=== PATIENT | female | born 1940 | race Caucasian/White ===

== ENCOUNTER → 2017-05-30 | Outpatient (CLI) | payer MEDICARE, OTHER ==
--- NOTE | 2017-05-30 11:33 | Diagnostic Imaging Report ---
EXAMINATION: Right lower extremity duplex venous ultrasound. TECHNIQUE: DVT protocol. Multiple sonographic images with color Doppler and waveform interrogation were performed of the right lower extremity veins with compression and augmentation maneuvers. INDICATION: Right leg pain. FINDINGS: The right lower extremity veins from the groin to below the knee veins were examined with normal color-flow, compressibility and normal waveform demonstrated. The great saphenous vein is patent. IMPRESSION: No evidence of DVT in the right lower extremity. Dictated by: Dictated on workstation # [id number]
== END ==
LOC: RAD 10:28
PROVIDERS: ATTEND Family Medicine
DX: M79.661 Pain in right lower leg (principal)

== ENCOUNTER → 2019-12-28 | Outpatient (CLI) | payer MEDICARE, OTHER ==
--- NOTE | 2019-12-28 13:41 | Diagnostic Imaging Report ---
INDICATION: Fatigue and joint pain. Time of exam 12:49 PM No prior studies are available for comparison. Heart size normal. There are calcified lymph nodes in the ike bilaterally consistent with prior granulomatous exposure. No infiltrates are seen. There is no effusion or pneumothorax. IMPRESSION: No acute cardiopulmonary process is detected. Dictated by: Dictated on workstation # [id number]
== END ==
LOC: RAD 12:31
PROVIDERS: ATTEND Family Medicine
DX: M25.50 Pain in unspecified joint (principal); R53.83 Other fatigue; R51 Headache; M79.603 Pain in arm, unspecified
CPT/HCPCS: 71046

== ENCOUNTER 2020-08-11 09:03 | Outpatient (CLI) | payer MEDICARE, OTHER ==
[~2020-08-11] VITALS: Ht 167.7 cm; Wt 80.0 kg
[2020-08-11 08:55] VITALS: BP 115/54
[2020-08-11] MEDS ORDERED: EPINEPHrine INJECTION 1 MG/ML AMP IM PRN (09:15)
[2020-08-11] MEDS ORDERED: diphenhydrAMINE 50 MG/ML INJ (BENADRYL) IV PRN (09:15)
[2020-08-11] MEDS ORDERED: BAMLANIVIMAB 700 MG in NS 200 ML IV ONE (09:15)
[2020-08-11 10:45] VITALS: BP 131/58
== END 2020-08-11 11:45 | disposition home or self-care (01) ==
LOC: INFUSION 09:03
PROVIDERS: ATTEND Family Medicine
DX: U07.1 COVID-19 (principal)

== ENCOUNTER 2020-08-17 14:23 | Emergency (ER) | payer MEDICARE, OTHER ==
[~2020-08-17] VITALS: Ht 167 cm; Wt 77.0 kg
--- NOTE | 2020-08-17 14:39 | ED Cough/URI ---
General Chief Complaint: Respiratory Problems Stated Complaint: SOA/COVID + Source: patient Exam Limitations: no limitations History of Present Illness Date Seen by Provider: Aug 17, 2020 Time Seen by Provider: 14:36 Initial Comments To ER by private vehicle with reports of shortness of breath, hypoxia and being Covid positive. Sats 88% at home. Tested positive 08/08. Received bamlanivimab. Timing/Duration: constant Severity/Quality: moderate Associated Symptoms: cough Allergies and Home Medications Allergies Coded Allergies: Penicillins (Unverified Adverse Reaction, Unknown, 08/11/20) Sulfa (Sulfonamide Antibiotics) (Unverified Adverse Reaction, Unknown, 08/11/20) Home Medications Dexamethasone 6 Mg Tablet, 6 MG PO DAILY Prescribed by: JHONNY ULLOA on 08/17/20 1536 [Oxygen] , 2 L NA UD Home oxygen concentrator at 2-4 liters to keep O2 saturation >90%. Prescribed by: JHONNY ULLOA on 08/17/20 1535 Patient Home Medication List Home Medication List Reviewed: Yes Review of Systems Review of Systems Constitutional: see HPI EENTM: see HPI Respiratory: see HPI Cardiovascular: no symptoms reported Genitourinary: no symptoms reported Musculoskeletal: no symptoms reported Skin: no symptoms reported Psychiatric/Neurological: No Symptoms Reported Hematologic/Lymphatic: No Symptoms Reported Physical Exam Vital Signs - First Documented 08/17/20 14:35 Temp 37.5 Pulse 82 Resp 20 B/P (MAP) 144/90 (108) Pulse Ox 94 O2 Delivery Room Air Capillary Refill : Height: '" Weight: lbs. oz. kg; BMI Method: General Appearance: WD/WN, no apparent distress, other Eyes: Bilateral Eye Normal Inspection, Bilateral Eye PERRL HEENT: PERRL/EOMI, normal ENT inspection Neck: non-tender, full range of motion Respiratory: no respiratory distress, no accessory muscle use Gastrointestinal: normal bowel sounds, soft Extremities: normal range of motion, non-tender Neurologic/Psychiatric: alert, normal mood/affect, oriented x 3 Skin: normal color, warm/dry Progress/Results/Core Measures Suspected Sepsis SIRS Temperature: Pulse: Respiratory Rate: Laboratory Tests 08/17/20 14:33: White Blood Count 10.3 Blood Pressure / Mean: Laboratory Tests 08/17/20 14:33: Creatinine 2.37H, Platelet Count 271, Total Bilirubin 0.3 Results/Orders Lab Results Laboratory Tests Test 08/17/20 14:33 Range/Units White Blood Count 10.3 4.3-11.0 10^3/uL Red Blood Count 3.67 L 3.80-5.11 10^6/uL Hemoglobin 10.6 L 11.5-16.0 g/dL Hematocrit 33 L 35-52 % Mean Corpuscular Volume 90 80-99 fL Mean Corpuscular Hemoglobin 29 25-34 pg Mean Corpuscular Hemoglobin Concent 32 32-36 g/dL Red Cell Distribution Width 13.8 10.0-14.5 % Platelet Count 271 130-400 10^3/uL Mean Platelet Volume 9.8 9.0-12.2 fL Immature Granulocyte % (Auto) 2 % Neutrophils (%) (Auto) 77 H 42-75 % Lymphocytes (%) (Auto) 11 L 12-44 % Monocytes (%) (Auto) 10 0-12 % Eosinophils (%) (Auto) 0 0-10 % Basophils (%) (Auto) 0 0-10 % Neutrophils # (Auto) 7.9 H 1.8-7.8 10^3/uL Lymphocytes # (Auto) 1.2 1.0-4.0 10^3/uL Monocytes # (Auto) 1.1 H 0.0-1.0 10^3/uL Eosinophils # (Auto) 0.0 0.0-0.3 10^3/uL Basophils # (Auto) 0.0 0.0-0.1 10^3/uL Immature Granulocyte # (Auto) 0.2 H 0.0-0.1 10^3/uL Sodium Level 133 L 135-145 MMOL/L Potassium Level 5.9 H 3.6-5.0 MMOL/L Chloride Level 98 98-107 MMOL/L Carbon Dioxide Level 20 L 21-32 MMOL/L Anion Gap 15 H 5-14 MMOL/L Blood Urea Nitrogen 42 H 7-18 MG/DL Creatinine 2.37 H 0.60-1.30 MG/DL Estimat Glomerular Filtration Rate 20 BUN/Creatinine Ratio 18 Glucose Level 158 H 70-105 MG/DL Calcium Level 9.7 8.5-10.1 MG/DL Corrected Calcium 9.6 8.5-10.1 MG/DL Total Bilirubin 0.3 0.1-1.0 MG/DL Aspartate Amino Transf (AST/SGOT) 51 H 5-34 U/L Alanine Aminotransferase (ALT/SGPT) 52 0-55 U/L Alkaline Phosphatase 65 40-136 U/L C-Reactive Protein High Sensitivity 9.80 H 0.00-0.50 MG/DL B-Type Natriuretic Peptide 76.6 <100.0 PG/ML Total Protein 7.8 6.4-8.2 GM/DL Albumin 4.1 3.2-4.5 GM/DL My Orders Orders - JHONNY ULLOA APRN Cbc With Automated Diff (08/17/20 14:35) Hs C Reactive Protein (08/17/20 14:35) BNP (08/17/20 14:35) Comprehensive Metabolic Panel (08/17/20 14:35) Chest 1 View, Ap/Pa Only (08/17/20 14:35) Ed Iv/Invasive Line Start (08/17/20 14:35) Ns Iv 1000 Ml (Sodium Chloride 0.9%) (08/17/20 15:00) Ekg Tracing (08/17/20 14:58) Procalcitonin (Pct) (08/17/20 15:34) Dexamethasone Tablet (Decadron Tablet) (08/17/20 15:45) Vital Signs/I&O 08/17/20 14:35 Temp 37.5 Pulse 82 Resp 20 B/P (MAP) 144/90 (108) Pulse Ox 94 O2 Delivery Room Air Capillary Refill : Diagnostic Imaging Diagonstic Imaging: Xray Plain Films/CT/US/NM/MRI: chest Comments NAME: TAM SANTANA [facility] REC#: [id number] PT STATUS: REG ER : 1940 PHYSICIAN: JHONNY ULLOA APRN ADMIT DATE: 08/17/20/ER Draft Date of Exam:08/17/20 CHEST 1 VIEW, AP/PA ONLY INDICATION: cough COMPARISON: 12/28/2019 FINDINGS: Single frontal view of the chest demonstrates normal heart size and pulmonary vascularity. Evaluation of lung villanueva suggests 1.8 cm nodular opacity within the left midlung. Otherwise, lungs are clear. There is no focal consolidation, large effusion, no pneumothorax. Osseous structures show no acute abnormalities. IMPRESSION: 1. No evidence of failure or focal infiltrate. 2. Suspicious nodular opacity within the left midlung. Further characterization with postcontrast CT chest is recommended. This could be performed on a nonemergent basis. Dictated on workstation # [id number] Dict: 08/17/20 1502 Trans: 08/17/[address] [facility] [id number] Interpreted by: DOUGIE JASON MD Electronically signed by: Departure Communication (Admissions) 1350-patient was 95 to 96% on room air on arrival. However after sitting in bed for a while her oxygen saturation dropped to 88% on room air. She does not want hospitalization. I will see if I can arrange home oxygen for her. Impression Primary Impression: COVID-19 Additional Impression: Hypoxia Disposition: HOME, SELF-CARE Condition: Stable Departure-Patient Inst. Decision time for Depature: 15:08 Referrals: BABAK STINSON MD (PCP/Family) Primary Care Physician Patient Instructions: COVID19 Add. Discharge Instructions: 1. You have a nodule in the left lung on chest x-ray. This needs to be followed up with a CT scan in the next few weeks. Return to ER for any worsening. All discharge instructions reviewed with patient and/or family. Voiced understanding. Scripts Dexamethasone (Decadron) 6 Mg Tablet 6 MG PO DAILY, #5 TAB Prov: JHONNY ULLOA APRN 08/17/20 [Oxygen] No Conflict Check 2 L NA UD, #1 EA Home oxygen concentrator at 2-4 liters to keep O2 saturation >90%. Prov: JHONNY ULLOA APRN 08/17/20 JHONNY ULLOA APRN Aug 17, 2020 14:39
[2020-08-17 14:40] LABS: BASOPHILS % (AUTO) 0 % (0-10); EOSINOPHILS % (AUTO) 0 % (0-10); HEMATOCRIT 33 % (35-52); HEMOGLOBIN 10.6 g/dL (11.5-16.0); LYMPHOCYTES # (AUTO) 1.2 10^3/uL (1.0-4.0); LYMPHOCYTES % (AUTO) 11 % (12-44); MEAN CORPUSCULAR HEMOGLOBIN 29 pg (25-34); MEAN CORPUSCULAR HGB CONC 32 g/dL (32-36); MEAN CORPUSCULAR VOLUME 90 fL (80-99); MEAN PLATELET VOLUME 9.8 fL (9.0-12.2); MONOCYTES # (AUTO) 1.1 10^3/uL (0.0-1.0); MONOCYTES % (AUTO) 10 % (0-12); NEUTROPHILS # (AUTO) 7.9 10^3/uL (1.8-7.8); NEUTROPHILS % (AUTO) 77 % (42-75); PLATELET COUNT 271 10^3/uL (130-400); WHITE BLOOD COUNT 10.3 10^3/uL (4.3-11.0)
[2020-08-17 14:50] LABS: ALBUMIN 4.1 GM/DL (3.2-4.5); POTASSIUM 5.9 MMOL/L (3.6-5.0)
[2020-08-17 14:51] LABS: CALCIUM 9.7 MG/DL (8.5-10.1)
[2020-08-17 14:52] LABS: TOTAL PROTEIN 7.8 GM/DL (6.4-8.2)
[2020-08-17 14:54] LABS: BILIRUBIN,TOTAL 0.3 MG/DL (0.1-1.0)
[2020-08-17 14:56] LABS: CREATININE SERUM 2.37 MG/DL (0.60-1.30)
[2020-08-17] MEDS ORDERED: NS IV 1000 ML 1,000 ML IV SCH (15:00)
--- NOTE | 2020-08-17 15:05 | Diagnostic Imaging Report ---
INDICATION: cough COMPARISON: 12/28/2019 FINDINGS: Single frontal view of the chest demonstrates normal heart size and pulmonary vascularity. Evaluation of lung villanueva suggests 1.8 cm nodular opacity within the left midlung. Otherwise, lungs are clear. There is no focal consolidation, large effusion, no pneumothorax. Osseous structures show no acute abnormalities. IMPRESSION: 1. No evidence of failure or focal infiltrate. 2. Suspicious nodular opacity within the left midlung. Further characterization with postcontrast CT chest is recommended. This could be performed on a nonemergent basis. Dictated by: Dictated on workstation # [id number]
[2020-08-17] MEDS ORDERED: Oxygen ×2 (15:33→15:35)
[2020-08-17] MEDS ORDERED: DEXA6TAB6 PO (15:36)
[2020-08-17] MEDS ORDERED: dexAMETHasone 6 MG TAB (DECADRON) PO SCH (15:45)
[2020-08-17] MEDS ORDERED: AZIT250T12 PO (16:19)
[2020-08-17] MEDS ORDERED: cefTRIAXone FOR IV USE 1,000 MG in WATER (STERILE) FOR INJECTION 10 ML IV ONE (16:30)
[2020-08-17 16:45] VITALS: BP 140/90
== END 2020-08-17 16:45 | disposition home or self-care (01) ==
LOC: EDUNIT# 14:23 → ER 14:27
DX: U07.1 COVID-19 (principal); Z88.0 Allergy status to penicillin; Z88.2 Allergy status to sulfonamides
CPT/HCPCS: 36415; 71045; 80053; 83880; 84145; 85025; 86141; 93005